=== PATIENT | male | born 1975 | race Caucasian/White ===

== ENCOUNTER 2020-07-12 23:59 | Inpatient (IN) | payer OTHER ==
[~2020-07-12] VITALS: Ht 162.6 cm; Wt 74.8 kg
[~2020-07-12 23:59] MED LIST: AUGMENTIN 875-1 EACH PO; CARAFATE 11 GM/10 M1 PO; PROTONIX40 M2 PO
[2020-07-13] VITALS (41 sets, daily range): BP systolic 73–111; BP diastolic 25–66
[2020-07-13 00:46] LABS: URINE BLOOD NEGATIVE (Negative); URINE CLARITY CLEAR; URINE COLOR BROWN; URINE GLUCOSE-RANDOM NEGATIVE (Negative); URINE KETONES TRACE (Negative); URINE LEUKOCYTES-REFLEX NEGATIVE (Negative); URINE PROTEIN 1+ (Negative); URINE SPECIFIC GRAVITY 1.025 (1.005-1.030); URINE UROBILINOGEN 0.2 E.U./dl (0.2-1.0)
[2020-07-13 00:48] LABS: URINE BILIRUBIN 3+ (Negative); URINE NITRITE-REFLEX POSITIVE (Negative)
[2020-07-13 00:50] LABS: ICTOTEST (BILI CONFIRMATORY) Positive (Negative)
[2020-07-13 00:56] LABS: HEMATOCRIT 26.9 % (42.0-52.0); HEMOGLOBIN 8.8 gm/dL (14.0-18.0); MCH 32.7 pg (26.0-34.0); MCHC 32.7 g/dL (28.0-37.0); MPV 7.9 fl. (7.2-11.1); NUCLEATED RBCS 0 /100WBC; PLATELET COUNT* 121 thou/uL (150-400); RBC 2.69 mil/uL (4.50-6.00); RDW-CV 21.6 % (10.5-14.5); WBC 18.6 thou/uL (4.0-11.0)
[2020-07-13 01:08] LABS: CALCIUM 7.9 mg/dL (8.5-10.1); CREATININE 0.9 mg/dL (0.6-1.3); POTASSIUM 4.4 mmol/L (3.5-5.1)
[2020-07-13 01:11] LABS: INR 1.6; PROTIME 16.7 Seconds (9.20-11.50)
[2020-07-13 01:13] LABS: ALBUMIN 2.3 g/dL (3.4-5.0); TOTAL PROTEIN 6.4 g/dL (6.4-8.2)
[2020-07-13 01:20] LABS: SQUAMOUS 0-3 Few /LPF (0-3)
[2020-07-13 01:21] LABS: AMORPHOUS URATES Moderate /LPF (None Seen); COARSE GRANULAR CASTS 0-3 Few /LPF (None Seen); FINE GRANULAR CASTS 0-3 Few /LPF (None Seen); MUCUS >6 Heavy strn/LPF (None Seen); URINE RBC 3-10 Few /HPF (0-2); URINE WBC-REFLEX 0-5 Rare /HPF (0-5)
[2020-07-13 02:31] LABS: ABSOLUTE EOSINOPHILS 0.2 thou/uL (0.0-0.7); ABSOLUTE LYMPHOCYTES 0.4 thou/uL (0.8-5.3); ABSOLUTE MONOCYTES 0.6 thou/uL (0.0-1.2); ABSOLUTE NEUTROPHILS 17.5 thou/uL (1.6-8.1); ANISOCYTOSIS 1+; HYPOCHROMASIA 1+; PLATELET ESTIMATE DECREASED; POLYCHROMASIA Occasional; TOXIC GRANULATION 1+
[2020-07-13 02:33] LABS: OVALOCYTES Occasional; SCHISTOCYTES Occasional; TEARDROPS Occasional
[2020-07-14] VITALS (33 sets, daily range): BP systolic 93–119; BP diastolic 38–65
[2020-07-14 08:18] LABS: ABSOLUTE BASOPHILS 0.1 thou/uL (0.0-0.2); ABSOLUTE EOSINOPHILS 0.1 thou/uL (0.0-0.7); ABSOLUTE LYMPHOCYTES 1.4 thou/uL (0.8-5.3); ABSOLUTE MONOCYTES 1.1 thou/uL (0.0-1.2); ABSOLUTE NEUTROPHILS 16.2 thou/uL (1.6-8.1); BASOPHILS 0.6 %; EOSINOPHILS 0.8 %; HEMATOCRIT 25.1 % (42.0-52.0); HEMOGLOBIN 8.3 gm/dL (14.0-18.0); LYMPHOCYTES 7.3 %; MCH 32.3 pg (26.0-34.0); MCHC 33.1 g/dL (28.0-37.0); MCV 97.8 fL (80.0-100.0); MPV 8.1 fl. (7.2-11.1); NUCLEATED RBCS 0 /100WBC; PLATELET COUNT* 118 thou/uL (150-400); POLYS 85.3 %; RBC 2.57 mil/uL (4.50-6.00)
[2020-07-14 08:22] LABS: ALBUMIN 1.9 g/dL (3.4-5.0); CREATININE 0.8 mg/dL (0.6-1.3); POTASSIUM 4.1 mmol/L (3.5-5.1); TOTAL BILIRUBIN 6.8 mg/dL (<0.1-1.0); TOTAL PROTEIN 5.9 g/dL (6.4-8.2)
[2020-07-14 14:20] LABS: BE -2.6 mmol/L (-2 to +3); PCO2 25.7 mmHg (35.0-45.0); pH 7.499 (7.340-7.450)
[2020-07-15] VITALS (19 sets, daily range): BP systolic 93–111; BP diastolic 42–79
[2020-07-15 03:42] LABS: HEMATOCRIT 24.9 % (42.0-52.0); HEMOGLOBIN 8.3 gm/dL (14.0-18.0); MCH 32.9 pg (26.0-34.0); MCHC 33.4 g/dL (28.0-37.0); MCV 98.4 fL (80.0-100.0); MPV 7.9 fl. (7.2-11.1); RBC 2.53 mil/uL (4.50-6.00); RDW-CV 20.1 % (10.5-14.5); WBC 18.1 thou/uL (4.0-11.0)
[2020-07-15 04:44] LABS: CALCIUM 7.7 mg/dL (8.5-10.1); CREATININE 0.8 mg/dL (0.6-1.3); POTASSIUM 4.3 mmol/L (3.5-5.1)
--- NOTE | 2020-07-15 09:45 | EKG ---
[place] [address] ELECTROCARDIOGRAM REPORT Name: CRISS LOPES Room: [address] ADM [place] .R.#: [id number] Admission: 07/13/20 Attend Phys: Seven Myers, Discharge: Date of : 71 Date of Service: 07/13/20 0055 Report #: [id number] THIS REPORT FOR: //name// [facility] ED Test Date: 2020-07-13 Test Time: 00:55:57 Pat Name: CRISS NOLAN Department: Room: [facility] Gender: M Contact Center Professional: DIANA : 1975 Requested By: Deedee Johnson Order Number: [id number] MD: Ramírez Baron Measurements Intervals [place] Rate: 95 P: -6 DE: 156 QRS: -31 QRSD: 92 T: 8 QT: 368 QTc: 463 Interpretive Statements Sinus rhythm Left axis deviation Abnormal R-wave progression, late transition Baseline wander in lead(s) V1 Compared to ECG 07/06/2020 15:41:56 Sinus tachycardia no longer present Prolonged QT interval no longer present Electronically Signed On 07-15-2020 9:45:12 CDT by Ramírez Baron [email or web address] <ELECTRONICALLY SIGNED> By: Ramírez Baron MD, [facility] 07/15/20 0945 0055 Ramírez Baron MD, [facility] /EPI
[2020-07-15] MEDS ORDERED: DEXAMETHASONE 44 M1 PO (15:25)
[2020-07-15] MEDS ORDERED: LASIX 40 MG TAB40 MG PO (15:25)
--- NOTE | 2020-07-15 17:26 | 2DMMODE ---
[place] [address] 2 D/M-MODE ECHOCARDIOGRAM Name: CRISS LOPES Room: [facility] ADM IN M.R.#: [id number] Admission: 07/13/20 Attend Phys: Seven Myers, Discharge: Date of : 71 Date of Service: 07/15/20 1726 Report #: [id number] THIS REPORT FOR: cc: FAM - No family physician/PCP FAM - No family physician/PCP Ramírez Baron MD [facility] ~ APPROVED REPORT Study performed: 07/15/2020 14:53:03 EXAM: Comprehensive 2D, Doppler, and color-flow Echocardiogram Patient Location: In-Patient Room #: 001 Status: routine BSA: 1.80 HR: 80 bpm BP: 93/56 mmHg Rhythm: NSR Other Information Study Quality: Good Indications Non STEMI Dyspnea COVID 2D Dimensions IVSd: 9.87 (7-11mm) LVOT Diam: 20.15 (18-24mm) LVDd: 49.31 mm PWd: 8.75 (7-11mm) Ascending Ao: 29.48 (22-36mm) LVDs: 34.63 (25-40mm) Aortic Root: 28.85 mm Volumes Left Atrial Volume (Systole) LA ESV Index: 39.20 mL/m2 Aortic Valve AoV Peak Mark.: 1.73 m/s AO Peak Gr.: 11.96 mmHg LVOT Max P.31 mmHg AO Mean Gr.: 6.38 mmHg LVOT Mean P.30 mmHg LVOT Max V: 1.26 m/s AO V2 VTI: 33.15 cm LVOT Mean V: 0.84 m/[place] [address] 2 D/M-MODE ECHOCARDIOGRAM Name: CRISS LOPES Room: [address] IN M.R.#: [id number] Admission: 07/13/20 Attend Phys: Seven Myers, Discharge: Date of : 71 Date of Service: 07/15/20 1726 Report #: [id number] ALISIA (VTI): 2.56 cm2 LVOT V1 VTI: 26.56 cm Mitral Valve E/A Ratio: 1.05 MV Decel. Time: 288.64 ms MV E Max Mark.: 1.21 m/s MV PHT: 83.71 ms MVA (PHT): 2.63 cm2 TDI E/Lateral E': 9.31 E/Medial E': 11.00 Medial E' Mark.: 0.11 m/s Lateral E' Mark.: 0.13 m/s Pulmonary Valve PV Peak Mark.: 1.36 m/s PV Peak Gr.: 7.43 mmHg Tricuspid Valve RAP Estimate: 5.00 mmHg TR Peak Gr.: 21.34 mmHg RVSP: 26.00 mmHg PA Pressure: 26.00 mmHg Left Ventricle The left ventricle is normal size. There is normal LV segmental wall motion. There is normal left ventricular wall thickness. Left ventricular systolic function is normal. The left ventricular ejection fraction is within the normal range. LVEF is 60-65%. Right Ventricle The right ventricle is normal size. The right ventricular systolic function is normal. Atria Left atrium is mildly dilated. The right atrium size is normal. Aortic Valve The aortic valve is normal in structure. No aortic regurgitation is present. There is no aortic valvular stenosis. Mitral Valve The mitral valve is normal in structure. Trace mitral regurgitation. No evidence of mitral valve stenosis. Tricuspid Valve The tricuspid valve is normal in structure[place] [address] 2 D/M-MODE ECHOCARDIOGRAM Name: CRISS LOPES Room: [address] IN [facility]#: [id number] Admission: 07/13/20 Attend Phys: Seven Myers, Discharge: Date of : 71 Date of Service: 07/15/20 1726 Report #: [id number] regurgitation. No pulmonary hypertension. Pulmonic Valve The pulmonary valve is normal in structure. There is no pulmonic valvular regurgitation. Great Vessels The aortic root is normal in size. IVC is normal in size and collapses >50% with inspiration. Pericardium There is no pericardial effusion. <Conclusion> LVEF is 60-65%. Left atrium is mildly dilated. <ELECTRONICALLY SIGNED> By: Ramírez Baron MD, [facility] 07/15/20 1726 [id number] Ramírez Baron MD, FAC /INF
== END 2020-07-15 17:45 | disposition home or self-care (01) | DRG 177 ==
LOC: M.ERS 23:59 → M.TBA-ER 07-13 03:18 → M.ICU 07-13 04:42
PROVIDERS: Family Medicine; Personal Emergency Response Attendant; ADMIT Internal Medicine; ATTEND Internal Medicine
DX: U07.1 COVID-19 (principal); J96.01 Acute respiratory failure with hypoxia; J12.82 Pneumonia due to coronavirus disease 2019; N39.0 Urinary tract infection, site not specified; D61.818 Other pancytopenia; I95.9 Hypotension, unspecified; K74.60 Unspecified cirrhosis of liver; E88.09 Other disorders of plasma-protein metabolism, not elsewhere classified; K76.9 Liver disease, unspecified; F10.20 Alcohol dependence, uncomplicated; Y90.9 Presence of alcohol in blood, level not specified